=== PATIENT | male | born 1980 | race Caucasian/White ===

== ENCOUNTER 2023-01-30 16:19 | Emergency (ER) | payer MEDICAID ==
[~2023-01-30] VITALS: Ht 167.6 cm; Wt 91.6 kg
[2023-01-30 16:23] VITALS: BP 133/80; PULSE 78; RESP 18; TEMP 98.8; O2SAT 99
[2023-01-30] MEDS ORDERED: BACITRACIN OINT 500 UNITS/GM PKT TP ONE (16:40)
[2023-01-30 16:46] VITALS: TEMP 98.8
[2023-01-30 16:52] VITALS: O2SAT 99
[2023-01-30] MEDS ORDERED: TETRACAINE HCL/PF 0.5% OPTH 4 ML BTL OP ONE (17:05)
[2023-01-30] MEDS ORDERED: FLUORESCEIN OPTH STRIP 1 MG OP ONE (17:10)
[2023-01-30] MEDS ORDERED: ERYTHROMYCIN 0.5% OPTH OINT 1 GM TUBE OP ONE (17:50)
[2023-01-30] MEDS ORDERED: ERYT5OIN51 OP ×2 (17:51→18:09)
[2023-01-30 18:02] VITALS: BP 94/51; PULSE 98; RESP 20
== END 2023-01-30 18:14 | disposition home or self-care (01) ==
LOC: MED 16:19
DX: H57.11 Ocular pain, right eye (principal); Z79.899 Other long term (current) drug therapy
CPT/HCPCS: 99291